=== PATIENT | male | born 1970 | race Caucasian/White ===

== ENCOUNTER 2016-11-12 20:57 | Emergency (ER) | payer SELFPAY ==
--- NOTE | ~2016-11-12 | ER ---
PATIENT'S NAME: JOVITA MCGHEE [facility] AGE: 46 Y [address] ROOM: [place] [address] LOCATION: ED ADMIT DATE: 11/12/2016 ER/Outpatient Report DISCHARGE DATE: 11/12/2016 FAMILY PHYSICIAN: Cory Quinonez MD ATTENDING PHYSICIAN: Willy Reyes Time of Arrival: 2104 hours. Time of Exam: 2104 hours. CHIEF COMPLAINT: Infection, sores. HISTORY OF PRESENT ILLNESS: The patient states approximately 4 days ago he began having lesions in the left upper arm, that have developed some pustule pockets, they have been draining green-colored pus. They are tender to touch. He had his pain monitoring patch on the arm and felt like that kind of started all the irritation. He also has some on his left lower leg and left groin area. He did move his pain monitoring patch to his right arm and has not had any open sores develop on his right arm. ALLERGIES: HALDOL. MEDICATIONS: None. PAST MEDICAL HISTORY: History of drug and alcohol abuse. PAST SURGICAL HISTORY: Appendectomy. SOCIAL HISTORY: Denies use of tobacco, drugs, or alcohol for the past year. States Dr. Quinonez is his primary provider. He presents to the ER accompanied by his . REVIEW OF SYSTEMS: Review of all systems is negative other than those mentioned in the HPI. PHYSICAL EXAMINATION: VITAL SIGNS: He weighed 92.9 kg. Blood pressure is 130/79, pulse is 73, respirations 16, temperature of 98.8, and O2 saturation was 94% on room air. GENERAL: He is awake, alert, and oriented x4. PATIENT'S NAME: JOVITA MCGHEE [facility] AGE: 46 Y [address] ROOM: [place] [address] LOCATION: ED ADMIT DATE: 11/12/2016 ER/Outpatient Report DISCHARGE DATE: 11/12/2016 FAMILY PHYSICIAN: Cory Quinonez MD ATTENDING PHYSICIAN: Willy Reyes SKIN: [place], warm, and dry. RESPIRATIONS: Even and nonlabored. Lung sounds are clear throughout. HEART: Regular rate and rhythm. The patient has multiple lesions to the left upper arm, that are scabbed over, from him picking one area was loosened and some serosanguineous purulent drainage was obtained. Culture was obtained and sent to the lab. IMPRESSION: Cellulitis of the left upper arm. PLAN: Home. Wash the areas at least twice a day with soap and water. Prescription was given for Bactrim DS. They are to follow up with Dr. Quinonez if symptoms persist or worsen in the next 2 to 3 days. He verbalized understanding. STEFFANIE LEW APRN FOR [facility] SINGH/dia /[id number] d: 11/13/16 0104 t: 11/15/16 0643, OUTPATIENT REPORT
== END 2016-11-12 21:10 | disposition disaster alternative care site (69) ==
LOC: GMED 20:57
DX: L03.114 Cellulitis of left upper limb (principal); Z88.8 Allergy status to other drugs, medicaments and biological substances; Z90.49 Acquired absence of other specified parts of digestive tract